=== PATIENT | male | born 1955 | race Native Hawaiian/Other Pacific Islander ===

== ENCOUNTER 2018-03-17 07:38 | Inpatient (IN) | payer OTHER ==
[~2018-03-17] VITALS: Ht 172.7 cm; Wt 60.6 kg
[2018-03-17] VITALS (9 sets, daily range): BP systolic 135–175; BP diastolic 69–85; TEMP 97.5–97.9; Ht 172.7 cm; Wt 60.6 kg
[2018-03-17 09:37] LABS: PLATELET COUNT 189 K/uL (142-355)
[2018-03-17 09:45] LABS: POTASSIUM 4.3 mmol/L (3.6-5.2)
[2018-03-17] MEDS ORDERED: PRAVACHOL80 MG PO (13:01)
[2018-03-17] MEDS ORDERED: CASODEX50 MG PO (13:02)
[2018-03-17] MEDS ORDERED: LISI20TA31 PO (13:03)
[2018-03-18] VITALS: BP 145/73; TEMP 98.1
[2018-03-18 04:00] VITALS: BP 142/73; TEMP 97.4
[2018-03-18 05:02] LABS: PLATELET COUNT 168 K/uL (142-355)
[2018-03-18 05:45] LABS: POTASSIUM 4.1 mmol/L (3.6-5.2)
[2018-03-18 07:56] VITALS: BP 137/70; TEMP 97.5
[2018-03-18 12:00] VITALS: BP 104/57; TEMP 97.8
== END 2018-03-18 17:00 | disposition home or self-care (01) | DRG 723 ==
LOC: ED 07:38 → MED/SURG 12:45
DX: C61 Malignant neoplasm of prostate (principal); C79.51 Secondary malignant neoplasm of bone; I10 Essential (primary) hypertension; E78.4 Other hyperlipidemia; E83.51 Hypocalcemia
CPT/HCPCS: 36415; 80053; 81000; 83735; 84443; 85027; 96365; 96366; 99283; J1100; J1170

== ENCOUNTER 2018-03-26 19:00 | Emergency (ER) | payer OTHER ==
[~2018-03-26] VITALS: Ht 172.7 cm; Wt 59.4 kg
[~2018-03-26 19:00] MED LIST: CASODEX50 MG PO; LISI20TA31 PO; PRAVACHOL80 MG PO
[2018-03-26 20:24] LABS: PLATELET COUNT 270 K/uL (142-355)
[2018-03-26 20:35] LABS: POTASSIUM 4.3 mmol/L (3.6-5.2)
[2018-03-26 23:02] VITALS: BP 132/62; TEMP 97.6
== END 2018-03-26 23:04 | disposition home or self-care (01) ==
LOC: ED 19:00
PROVIDERS: Specialist
DX: M54.89 Other dorsalgia (principal); M47.896 Other spondylosis, lumbar region; C76.8 Malignant neoplasm of other specified ill-defined sites; W19.XXXA Unspecified fall, initial encounter
CPT/HCPCS: 36415; 80053; 81000; 83735; 84100; 85027; 96365; 96375; 99284; J1885; J3411; J3475; J3490

== ENCOUNTER 2018-04-17 20:33 | Emergency (ER) | payer OTHER ==
[~2018-04-17] VITALS: Ht 172.7 cm; Wt 53.5 kg
[2018-04-17] MEDS ORDERED: HYDR-3182 PO (20:44)
[2018-04-17 21:02] LABS: PLATELET COUNT 224 K/uL (142-355)
[2018-04-17 21:18] LABS: POTASSIUM 3.5 mmol/L (3.6-5.2)
[2018-04-17 23:15] VITALS: BP 165/78; TEMP 97.5
== END 2018-04-17 23:20 | disposition home or self-care (01) ==
LOC: ED 20:33
DX: C41.9 Malignant neoplasm of bone and articular cartilage, unspecified (principal)
CPT/HCPCS: 74022; 80053; 80307; 81000; 85027; 96374; 96375; 99284; J1885; J2405

== ENCOUNTER 2018-10-18 19:52 | Outpatient (CLI) | payer OTHER ==
[~2018-10-18 19:52] MED LIST changes: +HYDR-3182 PO
== END 2018-10-18 20:04 | disposition short-term general hospital (02) ==
LOC: AMB 19:52
DX: R06.02 Shortness of breath (principal)
CPT/HCPCS: A0425; A0427

== ENCOUNTER 2018-10-18 20:13 | Emergency (ER) | payer OTHER ==
[~2018-10-18] VITALS: Ht 172.7 cm; Wt 53.5 kg
[2018-10-18 20:57] LABS: PLATELET COUNT 198 K/uL (142-355)
[2018-10-18 21:12] LABS: POTASSIUM 3.7 mmol/L (3.6-5.2); SODIUM 134 mmol/L (136-145)
[2018-10-18 22:08] VITALS: BP 144/96; TEMP 98.1
== END 2018-10-18 22:19 | disposition home or self-care (01) ==
LOC: ED 20:13
PROVIDERS: Emergency Medicine
DX: J44.9 Chronic obstructive pulmonary disease, unspecified (principal); C79.51 Secondary malignant neoplasm of bone
CPT/HCPCS: 80053; 82550; 82553; 84484; 85027; 93005; 94664; 94760; 96374; 96375; 99284; J2175; J2405; J2930

== ENCOUNTER 2020-09-30 16:51 | Inpatient (IN) | payer OTHER ==
[~2020-09-30] VITALS: Ht 172.7 cm; Wt 50.9 kg
[2020-09-30 16:51] VITALS: BP 106/48; TEMP 100.7
[2020-09-30 17:14] LABS: PLATELET COUNT 117 K/uL (142-355)
[2020-09-30 17:15] LABS: POTASSIUM 3.2 mmol/L (3.6-5.2); SODIUM 134 mmol/L (136-145)
[2020-09-30 18:02] VITALS: BP 132/62
[2020-09-30 19:00] VITALS: BP 112/59; TEMP 99.1
[2020-09-30 21:48] VITALS: BP 108/54; TEMP 98; Ht 172.7 cm; Wt 50.9 kg
[2020-09-30 23:49] VITALS: BP 125/78; TEMP 97.9
[2020-10-01] VITALS (19 sets, daily range): BP systolic 11–133; BP diastolic 48–74; TEMP 98–98.7
[2020-10-01] MEDS ORDERED: ONDANSETRON4 M2 PO (01:20)
[2020-10-01] MEDS ORDERED: TRAMADOL HYDROC50 MG PO (01:21)
[2020-10-01] MEDS ORDERED: OXYC5TAB24 PO (01:23)
[2020-10-01] MEDS ORDERED: OXYCONTIN30 MG PO (01:27)
[2020-10-01] MEDS ORDERED: EQ STOOL SOFTE100 MG PO (01:30)
[2020-10-01 05:19] LABS: PLATELET COUNT 76 K/uL (142-355)
[2020-10-02] VITALS: BP 117/58; TEMP 98.5
[2020-10-02 04:00] VITALS: BP 100/52; TEMP 98.8
[2020-10-02 05:07] LABS: POTASSIUM 2.8 mmol/L (3.6-5.2)
[2020-10-02 06:28] LABS: PLATELET COUNT 68 K/uL (142-355)
[2020-10-02 08:00] VITALS: BP 108/61; TEMP 98.3
[2020-10-02 12:00] VITALS: BP 105/59; TEMP 98.8
[2020-10-02 16:00] VITALS: BP 106/55; TEMP 98.2
[2020-10-02 20:00] VITALS: BP 115/63; TEMP 98.4
[2020-10-03] VITALS (7 sets, daily range): BP systolic 104–148; BP diastolic 59–80; TEMP 97.9–98.6
[2020-10-03 05:55] LABS: PLATELET COUNT 79 K/uL (142-355)
[2020-10-03 06:01] LABS: POTASSIUM 4.6 mmol/L (3.6-5.2)
[2020-10-04 04:00] VITALS: BP 121/66; TEMP 98.1
[2020-10-04 05:34] LABS: POTASSIUM 4.6 mmol/L (3.6-5.2)
[2020-10-04 05:45] LABS: PLATELET COUNT 78 K/uL (142-355)
[2020-10-04 08:00] VITALS: BP 135/50; TEMP 99
[2020-10-04 12:00] VITALS: BP 98/49; TEMP 98.5
[2020-10-04 16:00] VITALS: BP 99/63; TEMP 98.5
[2020-10-04 20:00] VITALS: BP 120/63; TEMP 98.4
[2020-10-04 23:37] VITALS: BP 125/72; TEMP 98.9
[2020-10-05 04:00] VITALS: BP 111/63; TEMP 98.4
[2020-10-05 08:00] VITALS: BP 124/64; TEMP 98.4
[2020-10-05 12:00] VITALS: BP 110/68; TEMP 98.6
[2020-10-05 16:00] VITALS: BP 112/72; TEMP 98.3
[2020-10-05 19:57] VITALS: BP 115/71; TEMP 98.6
[2020-10-05 23:45] VITALS: BP 139/78; TEMP 98.9
[2020-10-06 03:38] VITALS: BP 104/60; TEMP 98.5
[2020-10-06 08:00] VITALS: BP 101/65; TEMP 98.2
[2020-10-06 12:00] VITALS: BP 118/69; TEMP 98.2
[2020-10-06] MEDS ORDERED: ACET-206 PO (12:58)
[2020-10-06] MEDS ORDERED: DICY10SY PO (12:59)
[2020-10-06] MEDS ORDERED: MEGESTROL AC40 MG/ML PO (12:59)
[2020-10-06] MEDS ORDERED: BLOOMIS59 PO (13:00)
[2020-10-06] MEDS ORDERED: PANTOPRAZOLE 40MG TA PO (13:00)
[2020-10-06] MEDS ORDERED: SILV1CRE TOP (13:01)
[2020-10-06 16:00] VITALS: BP 108/58; TEMP 98.1
[2020-10-06 20:00] VITALS: BP 102/57; TEMP 98.5
[2020-10-07] VITALS: BP 116/67; TEMP 98.5
[2020-10-07 04:00] VITALS: BP 116/60; TEMP 98.1
[2020-10-07 08:00] VITALS: BP 135/73; TEMP 97.7
[2020-10-07 12:00] VITALS: BP 105/58; TEMP 98.7
[2020-10-07 16:00] VITALS: BP 111/59; TEMP 98.4
[2020-10-07 20:02] VITALS: BP 107/61; TEMP 98.2
[2020-10-08] VITALS: BP 110/60; TEMP 98.4
[2020-10-08 04:00] VITALS: BP 115/74; TEMP 98.4
[2020-10-08 08:00] VITALS: BP 123/70; TEMP 98
== END 2020-10-08 09:25 | DRG 723 ==
LOC: ED 16:51 → MED/SURG 19:30
PROVIDERS: Family Medicine; ADMIT Internal Medicine Endocrinology, Diabetes & Metabolism; ATTEND Internal Medicine Endocrinology, Diabetes & Metabolism
DX: C61 Malignant neoplasm of prostate (principal); C79.51 Secondary malignant neoplasm of bone; E87.1 Hypo-osmolality and hyponatremia; R52 Pain, unspecified; K59.03 Drug induced constipation; T40.2X5A Adverse effect of other opioids, initial encounter; Y92.89 Other specified places as the place of occurrence of the external cause; D64.89 Other specified anemias; E87.6 Hypokalemia; F41.8 Other specified anxiety disorders; Z72.0 Tobacco use; I10 Essential (primary) hypertension; D69.6 Thrombocytopenia, unspecified; E83.51 Hypocalcemia
CPT/HCPCS: 36415; 80048; 80053; 84484; 85007; 85027; 86850; 86900; 86901; 86922; 93005; 94760; 96360; 96361; 96374; 96375; 99284; J0500; J1170; J1650; J1885; J2060; J2175; J2405; J3490; P9016